=== PATIENT | male | born 2000 | race Caucasian/White ===

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

== ENCOUNTER 2023-01-20 16:05 | Emergency (ER) | payer BC ==
[~2023-01-20] VITALS: Ht 175.3 cm; Wt 62.5 kg
[2023-01-20] MEDS ORDERED: ALBUTEROL 90 MCG/ACT 8GM HFA INHALER INH ONE ×2 (18:55→19:00)
[2023-01-20] MEDS ORDERED: VENTAER INH (19:00)
[2023-01-20 19:07] VITALS: BP 153/87; TEMP 98.4; O2SAT 98
== END 2023-01-20 19:22 | disposition home or self-care (01) ==
LOC: M ED 16:05
DX: J45.909 Unspecified asthma, uncomplicated (principal); Z91.030 Bee allergy status; Z79.52 Long term (current) use of systemic steroids

== ENCOUNTER → 2023-02-08 | Outpatient (CLI) | payer BC ==
[~2023-02-08] MED LIST changes: -ISOVUE-300 61% 50ML VIAL As Ordered ONE; -LIDOCAINE 1% MDV 20ML VIAL As Ordered ONE; -MIDAZOLAM INJ 2MG/2ML VIAL (J2250 PER 1MG) As Ordered ONE; -ONDANSETRON 4MG/2ML VIAL As Ordered ONE; -ONDANSETRON 4MG/2ML VIAL IV ONE; -PROMETHAZINE INJ 25 MG/ML VIAL (J2550) As Ordered ONE; +VENTAER INH; -diphenhydrAMINE 50MG/ML VIAL (J1200) As Ordered ONE; -fentaNYL 100 MCG/2 ML INJECTION (J3010) As Ordered ONE
[2023-02-08 14:01] LABS: HEMATOCRIT 45.5 % (42.0-52.0); HEMOGLOBIN 16.3 g/dl (13.5-17.5); MEAN CORPUSCULAR HEMOGLOBIN 30.3 pg (27.0-33.0); MEAN CORPUSCULAR HGB CONC 35.8 g/dl (32.0-36.5); MEAN CORPUSCULAR VOLUME 84.6 fl (80.0-96.0); PLATELET COUNT, AUTOMATED 292 10^3/uL (150-450); RED BLOOD COUNT 5.38 10^6/uL (4.30-6.10); WHITE BLOOD COUNT 7.6 10^3/uL (4.0-10.0)
[2023-02-08 14:25] LABS: BLOOD UREA NITROGEN 15 MG/DL (9-23); CALCIUM LEVEL 9.6 MG/DL (8.5-10.1); CARBON DIOXIDE LEVEL 29 MMOL/L (20-31); CHLORIDE LEVEL 105 MMOL/L (98-107); GLOMERULAR FILTRATION RATE > 60.0 (>60); GLUCOSE, FASTING 86 MG/DL (60-100); POTASSIUM SERUM 4.2 MMOL/L (3.5-5.1); SODIUM LEVEL 139 MMOL/L (136-145)
== END ==
LOC: M RAD 13:23
PROVIDERS: ATTEND Physician Assistant
DX: Z01.818 Encounter for other preprocedural examination (principal)

== ENCOUNTER 2023-02-17 08:09 | Day surgery (SDC) | payer BC ==
[~2023-02-17] VITALS: Ht 175.3 cm; Wt 63.4 kg
[~2023-02-17 08:09] MED LIST changes: +GALZ25CA PO; +HORS300C2 PO; +LIDOCAINE 2% 100MG/5ML SDV (FOR ANES.) As Ordered ONE; +ONDANSETRON 4MG 2ML VIAL As Ordered ONE; +VITA1CAP20 PO; +[UNRECOGNIZED DRUG - OTHER] PO; +[UNRECOGNIZED DRUG - OTHER] PO; +[UNRECOGNIZED DRUG - OTHER] PO; +ceFAZolin SOD 2 GM in IV 1 EA IV ONE; +propofoL 200 MG/20 ML VIAL As Ordered ONE
[2023-02-17] MEDS ORDERED: LR 1,000 ML IV SCH ×2 (08:30→15:40)
[2023-02-17] MEDS ORDERED: MIDAZOLAM INJ 2MG/2ML VIAL As Ordered ONE (13:40)
[2023-02-17] MEDS ORDERED: fentaNYL 100 MCG/2 ML INJECTION As Ordered ONE ×2 (13:40→15:36)
[2023-02-17] MEDS ORDERED: ACETAMINOPHEN 1000MG 100ML IV BAG As Ordered ONE (14:17)
[2023-02-17] MEDS ORDERED: HYDROMORPHONE HCL 0.5 MG/ 0.5 ML SYRINGE IV PRN (15:40)
[2023-02-17] MEDS ORDERED: oxyCODONE 5MG TAB PO PRN (15:40)
[2023-02-17] MEDS ORDERED: fentaNYL 100 MCG/2 ML INJECTION IV PRN (15:40)
[2023-02-17] MEDS ORDERED: METOCLOPRAMIDE INJ 10MG/2ML VIAL IV PRN (15:40)
[2023-02-17] MEDS ORDERED: ONDANSETRON 4MG 2ML VIAL IV PRN (15:40)
[2023-02-17] MEDS ORDERED: PERCOCET 5MG/325MG TAB PO PRN (16:20)
[2023-02-17] MEDS ORDERED: OXYC1TAB23 PO (16:21)
[2023-02-17 17:14] VITALS: BP 139/77; TEMP 97.9; O2SAT 99
== END 2023-02-17 17:25 | disposition home or self-care (01) ==
LOC: M SDC 08:09
PROVIDERS: ATTEND Urology
DX: I86.1 Scrotal varices (principal); Z91.030 Bee allergy status; Z87.891 Personal history of nicotine dependence
CPT/HCPCS: 55530; J0131; J0665; J0690; J1100; J2250; J2405; J3010

== ENCOUNTER → 2023-03-08 | Outpatient (CLI) | payer BC ==
[~2023-03-08] MED LIST changes: -LIDOCAINE 2% 100MG/5ML SDV (FOR ANES.) As Ordered ONE; -ONDANSETRON 4MG 2ML VIAL As Ordered ONE; +OXYC1TAB23 PO; -ceFAZolin SOD 2 GM in IV 1 EA IV ONE; -propofoL 200 MG/20 ML VIAL As Ordered ONE
[2023-03-08 14:31] LABS: CHOLESTEROL LEVEL 226 MG/DL (<200); CHOLESTEROL RISK RATIO 4.82 (<5); HDL CHOLESTEROL 46.8 MG/DL (>40); LDL CHOLESTEROL 140.2 MG/DL (<100); NON-HDL-C 179.2 MG/DL; TRIGLYCERIDES LEVEL 195 MG/DL (<150)
[2023-03-08 14:58] LABS: HIV 1&2 SCREEN NEGATIVE (NEGATIVE)
[2023-03-08 15:06] LABS: HEPATITIS C VIRUS ABY INDEX 0.18 INDEX (<0.8)
== END ==
LOC: M PLALAB 10:23
PROVIDERS: ATTEND Family Medicine
DX: Z00.00 Encounter for general adult medical examination without abnormal findings (principal); Z11.9 Encounter for screening for infectious and parasitic diseases, unspecified

== ENCOUNTER → 2023-03-10 | Outpatient (CLI) | payer BC ==
[2023-03-10 12:25] LABS: CHLAMYDIA DNA AMPLIFICATION NEGATIVE (NEGATIVE); GC DNA AMPLIFICATION NEGATIVE (NEGATIVE)
[2023-03-10 12:44] LABS: SEMEN APPEARANCE OPAQUE (OPAQUE); SEMEN VISCOSITY LIQUID (LIQUID); SEMEN VOLUME 2.5 ml (2.0-5.0); SEMEN pH 8.5 (7.0-8.0); SPERM CONCENTRATION 107.6 M/ml (>=15.0); WBC CONCENTRATION <=1 M/ml (<=1 M/ml)
== END ==
LOC: M PLALAB 08:58
PROVIDERS: ATTEND Family Medicine
DX: Z31.41 Encounter for fertility testing (principal)

== ENCOUNTER → 2024-01-31 | Outpatient (REF) | LOC: M PLAIMG 13:25 | PROVIDERS: ATTEND Internal Medicine | DX: M54.50 Low back pain, unspecified (principal) ==

== ENCOUNTER → 2024-02-06 | Outpatient (REF) | payer OTHER | LOC: M WUC 19:07 | PROVIDERS: ATTEND Physician Assistant | DX: R19.7 Diarrhea, unspecified (principal) ==

== ENCOUNTER 2024-02-08 18:41 | Emergency (ER) | payer OTHER ==
[~2024-02-08] VITALS: Ht 177.8 cm; Wt 56.4 kg
[2024-02-08 20:27] LABS: BASO # 0.1 10^3/uL (0.0-0.2); BASO % 0.9 % (0.0-1.0); EOS # 0.1 10^3/uL (0.0-0.5); EOS % 1.6 % (0.0-3.0); HEMATOCRIT 43.9 % (42.0-52.0); HEMOGLOBIN 15.9 g/dl (13.5-17.5); LYMPH % 28.7 % (24.0-44.0); MEAN CORPUSCULAR HEMOGLOBIN 31.4 pg (27.0-33.0); MEAN CORPUSCULAR HGB CONC 36.2 g/dl (32.0-36.5); MEAN CORPUSCULAR VOLUME 86.6 fl (80.0-96.0); MONO # 0.8 10^3/uL (0.0-0.8); NEUTROPHILS # 3.9 10^3/uL (1.5-8.5); NEUTROPHILS % 57.5 % (36.0-66.0); PLATELET COUNT, AUTOMATED 324 10^3/uL (150-450); RED BLOOD COUNT 5.07 10^6/uL (4.30-6.10); WHITE BLOOD COUNT 6.8 10^3/uL (4.0-10.0)
[2024-02-08 20:48] LABS: LIPASE 26 U/L (12-53)
[2024-02-08 20:51] LABS: ALBUMIN 4.5 G/DL (3.2-5.2); ALKALINE PHOSPHATASE 69 U/L (40-129); ALT/SGPT 20 U/L (7.0-40); AST/SGOT 10 U/L (<34); BILIRUBIN,DIRECT 0.2 MG/DL (<0.4); BILIRUBIN,TOTAL 0.7 MG/DL (0.3-1.2); BLOOD UREA NITROGEN 14 MG/DL (9-23); CALCIUM LEVEL 9.8 MG/DL (8.5-10.1); CARBON DIOXIDE LEVEL 29 MMOL/L (20-31); CHLORIDE LEVEL 105 MMOL/L (98-107); CREATININE FOR GFR 0.74 MG/DL (0.70-1.30); GLOMERULAR FILTRATION RATE > 60.0 (>60); GLUCOSE, FASTING 94 MG/DL (60-100); POTASSIUM SERUM 4.2 MMOL/L (3.5-5.1); SODIUM LEVEL 140 MMOL/L (136-145); TOTAL PROTEIN 7.4 G/DL (5.7-8.2)
[2024-02-08 21:49] VITALS: TEMP 98.1
[2024-02-08] MEDS ORDERED: ISOVUE-370 76% 100ML VIAL As Ordered ONE (22:14)
[2024-02-08 23:22] VITALS: BP 143/74; O2SAT 98
== END 2024-02-08 23:23 | disposition home or self-care (01) ==
LOC: M ED 18:41
DX: R10.9 Unspecified abdominal pain (principal); Z79.899 Other long term (current) drug therapy
CPT/HCPCS: 36415; 74177; 80048; 80076; 83690; 85025; 99284; Q9967

== ENCOUNTER → 2024-03-11 | Outpatient (CLI) | payer OTHER | LOC: M RAD 14:51 | PROVIDERS: ATTEND Family Medicine | DX: R19.09 Other intra-abdominal and pelvic swelling, mass and lump (principal) ==

== ENCOUNTER → 2024-03-11 | Outpatient (CLI) | payer OTHER ==
[2024-03-11 17:10] LABS: CHOLESTEROL RISK RATIO 4.14 (<5); HDL CHOLESTEROL 47.1 MG/DL (>40); LDL CHOLESTEROL 126.7 MG/DL (<100); NON-HDL-C 147.9 MG/DL
== END ==
LOC: M WUC 10:40
PROVIDERS: ATTEND Family Medicine
DX: E78.2 Mixed hyperlipidemia (principal)

== ENCOUNTER 2024-12-13 09:28 | Day surgery (SDC) | payer OTHER ==
[~2024-12-13] VITALS: Ht 177.8 cm; Wt 62.1 kg
[~2024-12-13 09:28] MED LIST changes: -GALZ25CA PO; +LIDOCAINE 2% 100 MG/5 ML SDV (FOR ANES.) As Ordered ONE; +MIDAZOLAM INJ 2 MG/2 ML VIAL As Ordered ONE; +ROCURONIUM BROMIDE 50MG/5ML VIAL As Ordered ONE; +ZINC25CA2 PO
[2024-12-13] MEDS: ceFAZolin SOD 2 GM IV ONCE IV ONE (10:42)
[2024-12-13] MEDS ORDERED: KETOROLAC 30 MG/ML 1 ML VIAL As Ordered ONE (11:14)
[2024-12-13] MEDS ORDERED: ACETAMINOPHEN 1000MG/100ML IV BAG As Ordered ONE (11:14)
[2024-12-13] MEDS ORDERED: ONDANSETRON 4MG 2ML VIAL As Ordered ONE (11:14)
[2024-12-13] MEDS ORDERED: dexAMETHasone 4 MG/ML 1 ML VIAL As Ordered ONE (11:14)
[2024-12-13] MEDS ORDERED: SUGAMMADEX SODIUM 500 MG/5 ML VIAL As Ordered ONE (11:22)
[2024-12-13] MEDS ORDERED: LR 1,000 ML IV SCH (11:40)
[2024-12-13] MEDS: MEPERIDINE 25 MG/ML 1 ML VIAL IV PRN (12:16)
[2024-12-13] MEDS: HYDROMORPHONE HCL 0.5 MG/0.5 ML SYRINGE IV PRN (12:37)
[2024-12-13] MEDS: ONDANSETRON 4MG 2ML VIAL IV PRN (12:38)
[2024-12-13 13:45] VITALS: BP 115/62; TEMP 98.3; O2SAT 98
== END 2024-12-13 13:57 | disposition home or self-care (01) ==
LOC: M SDC 09:28
PROVIDERS: ATTEND Surgery
DX: K40.90 Unilateral inguinal hernia, without obstruction or gangrene, not specified as recurrent (principal); F17.290 Nicotine dependence, other tobacco product, uncomplicated
CPT/HCPCS: 49650; C1781; J0131; J0665; J0688; J1100; J1171; J1885; J2175; J2250; J2405; J3010; S2900